=== PATIENT | female | born 1990 | race American Indian/Alaskan Native ===

== ENCOUNTER 2022-07-03 00:41 | Emergency (ER) | payer MEDICAID ==
[2022-07-03] MEDS ORDERED: levETIRAcetam 1000 MG/NS 0.75% 1,000 MG/100 ML BAG IV ONE (02:42)
--- NOTE | 2022-07-03 02:45 | Emergency Department Report ---
ED Seizure HPI - General Chief Complaint: Seizure Stated Complaint: SEIZURE Time Seen by Provider: 07/03/22 02:38 Source: EMS Mode of arrival: Stretcher Limitations: Altered Mental Status - History of Present Illness Initial Comments: Patient is a 32-year-old female history of seizures brought in by EMS after having multiple seizures. EMS reports patient had 1 seizure upon their arrival and administered intranasal Versed. States that she takes Keppra for her seizures. - Related Data Allergies Allergy/AdvReac Type Severity Reaction Status Date / Time No Known Allergies Allergy Verified 07/03/22 01:06 ED Review of Systems ROS: Stated complaint: SEIZURE Other details as noted in HPI Constitutional: denies: chills, fever Respiratory: denies: cough, shortness of breath, wheezing Cardiovascular: denies: chest pain, palpitations Gastrointestinal: denies: abdominal pain, nausea, diarrhea Musculoskeletal: denies: back pain, joint swelling, arthralgia Skin: denies: rash, lesions Neurological: denies: headache, weakness, paresthesias Psychiatric: denies: anxiety, depression ED Physical Exam - General Limitations: Altered Mental Status General appearance: postictal (Patient mildly postictal, speaking in full sentences) - Head Head exam: Present: atraumatic, normocephalic - Eye Eye exam: Present: normal appearance, EOMI - Respiratory Respiratory exam: Present: normal lung sounds bilaterally. Absent: respiratory distress - Cardiovascular Cardiovascular Exam: Present: regular rate, normal rhythm, normal heart sounds - GI/Abdominal GI/Abdominal exam: Present: soft. Absent: distended, tenderness - Neurological Exam Neurological exam: Present: alert, oriented X3 - Psychiatric Psychiatric exam: Present: normal affect, normal mood - Skin Skin exam: Present: warm, dry, intact, normal color ED Course Vital Signs 07/03/22 07/03/22 01:04 03:05 Pulse Rate 90 86 Respiratory 16 Rate Blood Pressure 152/90 126/89 [Left] O2 Sat by Pulse 100 98 Oximetry ED Medical Decision Making - Medical Decision Making Patient is a 32-year-old female with history of seizure presenting after reportedly having multiple seizures. She was loaded with IV Keppra. No further seizure activity while in ED. Stable for discharge home with return precautions. Critical care attestation.: If time is entered above; I have spent that time in minutes in the direct care of this critically ill patient, excluding procedure time. ED Disposition Clinical Impression: Seizure Disposition: 01 HOME / SELF CARE / HOMELESS Is pt being admited?: No Condition: Stable Instructions: Seizure, Adult, [id number] Additional Instructions: In 1 toPlease follow-up with your regular doctor 2 weeks. You may return if your symptoms worsen. Time of Disposition: 04:56
[2022-07-03 05:22] VITALS: BP 131/89
== END 2022-07-03 05:56 | disposition home or self-care (01) ==
LOC: ED 00:41
DX: R56.9 Unspecified convulsions (principal)
CPT/HCPCS: 96374; 99283; J1953